=== PATIENT | male | born 1980 | race African-American/Black ===

== ENCOUNTER 2018-09-28 11:52 | Emergency (ER) | payer SELFPAY ==
[~2018-09-28] VITALS: Ht 172.7 cm; Wt 77.7 kg
[2018-09-28] MEDS ORDERED: IV NORMAL SALINE 1,000ML 1,000 ML IV ONE (12:15)
[2018-09-28 12:25] LABS: BASO % 0 % (0-3); EOS % 0 % (0-3); HEMATOCRIT 50.1 % (39.0-53.0); HEMOGLOBIN 16.5 g/dL (13.0-17.5); LYMPH # 0.3 x10^3/uL (1.0-4.8); LYMPH % 4 % (24-48); MEAN CORPUSCULAR HEMOGLOBIN 28 pg (25-35); MEAN CORPUSCULAR HGB CONC 33 g/dL (31-37); MEAN CORPUSCULAR VOLUME 86 fL (79-100); MONO # 0.3 x10^3/uL (0.0-1.1); MONO % 3 % (0-9); NEUT # 7.4 x10^3uL (1.8-7.7); NEUT % 93 % (31-73); PLATELET COUNT 261 x10^3/uL (140-400); RED BLOOD COUNT 5.81 x10^6/uL (4.30-5.70); RED CELL DISTRIBUTION WIDTH 14.3 % (11.5-14.5)
[2018-09-28] MEDS ORDERED: ONDANSETRON PF 4 MG/2 ML VIAL. IV ONE (12:30)
[2018-09-28] MEDS ORDERED: IOHEXOL 300 MG/ML 75 ML VIAL. IV ONE (12:30)
--- NOTE | 2018-09-28 12:36 | PHYS DOC ---
Past History Past Medical History: No Pertinent History Past Surgical History: No Surgical History Alcohol Use: Occasionally Drug Use: None Adult General Chief Complaint Chief Complaint: ABDOMINAL PAIN HPI HPI 38-year-old male presents with lower abdominal pain, vomiting, and diarrhea. The patient woke up at 5 AM with some cramping in the stomach. She'll continue to the restroom. While he was on the toilet she began to vomit. He has had several episodes of vomiting and diarrhea. He has never had this frequent of vomiting in the past. He denies fever or chills at home. He has not been around anyone that has been ill that he knows of. He had a little bit of blood on the toilet paper after his last round of diarrhea. He was feeling normal yesterday. Review of Systems Review of Systems Constitutional: Denies fever or chills [] Eyes: Denies change in visual acuity, redness, or eye pain [] HENT: Denies nasal congestion or sore throat [] Respiratory: Denies cough or shortness of breath [] Cardiovascular: No additional information not addressed in HPI [] GI: Abdominal pain, nausea, vomiting, diarrhea [] : Denies dysuria or hematuria [] Musculoskeletal: Denies back pain or joint pain [] Integument: Denies rash or skin lesions [] Neurologic: Denies headache, focal weakness or sensory changes [] Endocrine: Denies polyuria or polydipsia [] All other systems were reviewed and found to be within normal limits, except as documented in this note. Current Medications Current Medications Current Medications Medications (Trade) Dose Ordered Sig/[facility] Start Time Stop Time Status Last Admin Dose Admin Iohexol (Omnipaque 300 Mg/ml) 75 ml 1X ONCE 09/28/18 12:30 09/28/18 12:32 DC 09/28/18 12:27 75 ML Ondansetron HCl (Zofran) 4 mg 1X ONCE 09/28/18 12:30 09/28/18 12:32 DC 09/28/18 12:16 4 MG Sodium Chloride 1,000 ml @ 1,000 mls/hr 1X ONCE 09/28/18 12:15 09/28/18 13:14 09/28/18 12:15 1,000 MLS/HR Allergies Allergies Allergies Coded Allergies Type Severity Reaction Last Updated Verified No Known Drug Allergies 09/28/18 No Physical Exam Physical Exam Constitutional: Well developed, well nourished, no acute distress, non-toxic appearance. [] HENT: Normocephalic, atraumatic, bilateral external ears normal, oropharynx moist, no oral exudates, nose normal. [] Eyes: PERRLA, EOMI, conjunctiva normal, no discharge. [] Neck: Normal range of motion, no tenderness, supple, no stridor. [] Cardiovascular:Heart rate regular rhythm, no murmur [] Lungs & Thorax: Bilateral breath sounds clear to auscultation [] Abdomen: Bowel sounds normal, soft, no tenderness, no masses, no pulsatile masses. [] Skin: Warm, dry, no erythema, no rash. [] Back: No tenderness, no CVA tenderness. [] Extremities: No tenderness, no cyanosis, no clubbing, ROM intact, no edema. [] Neurologic: Alert and oriented X 3, normal motor function, normal sensory function, no focal deficits noted. [] Psychologic: Affect normal, judgement normal, mood normal. [] Current Patient Data Vital Signs Vital Signs Date Time Temp Pulse Resp B/P (MAP) Pulse Ox O2 Delivery O2 Flow Rate FiO2 09/28/18 12:04 97.8 56 16 100 Room Air EKG EKG [] Radiology/Procedures Radiology/Procedures [] Impressions: EXAM: CT Abdomen and Pelvis with IV contrast CLINICAL HISTORY: Abdominal pain today for 7 hrs COMPARISON: none TECHNIQUE: Helical CT of the abdomen and pelvis was performed following the administration of intravenous contrast. Axial, coronal and sagittal reformatted images were generated. PQRS compliance statement - One or more of the following individualized dose reduction techniques were utilized for this study: 1. Automated exposure control 2. Adjustment of the mA and/or kV according to patient size 3. Use of iterative reconstruction technique FINDINGS: Lower chest: Linear opacities in the middle lobe likely scarring/atelectasis. Abdomen and Pelvis: No focal liver lesion. Gallbladder is normal. No biliary ductal dilatation. Spleen is unremarkable. Adrenal glands are normal. Pancreas is unremarkable. Symmetric nephrograms. No focal renal lesion. No hydronephrosis. No hydroureter. Bladder is unremarkable. Moderate colonic stool content is seen. No evidence for bowel obstruction. The appendix is grossly unremarkable. A small bowel intussusception is seen measuring up to 5.4 cm in length. No abdominal or pelvic ascites. No abdominal or pelvic lymphadenopathy. Bones: Sclerotic focus is seen within the right initial tuberosity likely bone island. No definite aggressive osseous lesion is seen. Of note, the left ischiofemoral space measures about 1.5 cm, which can be associated with ischiofemoral impingement. IMPRESSION: 1. A small bowel intussusception is seen in the pelvis measuring up to 5 cm in length. Small bowel intussusception may be incidental. No evidence of associated bowel obstruction. 2. Of note, the left ischiofemoral interval measures 1.5 cm which may be seen with left ischiofemoral impingement. Electronically signed by: Prasanth Vela MD (09/28/2018 12:49 PM) [facility] DICTATED AND SIGNED BY: PRASANTH VELA MD DATE: 09/28/18 1232 CC: LORENA WHITTEN DO; PCP,NO Course & Med Decision Making Course & Med Decision Making Pertinent Labs and Imaging studies reviewed. (See chart for details) The patient's labs are unremarkable. The patient's CT scan shows a small bowel intussusception, but no obstruction. There was another incidental finding. See official report for more details. The patient was given Zofran and 1 L saline in the ED. This has controlled his vomiting. Patient has not had diarrhea in the ED. I believe the patient can be discharged at this time. I will give him a prescription for Zofran at home. His abdominal pain returns and worsens, the patient will return to the emergency room. [] Dragon Disclaimer Dragon Disclaimer This electronic medical record was generated, in whole or in part, using a voice recognition dictation system. Departure Departure: Impression: Primary Impression: Vomiting and diarrhea Additional Impression: Intussusception of small bowel Disposition: HOME, SELF-CARE Condition: STABLE Referrals: PCP,NO (PCP) Scripts Ondansetron (ONDANSETRON ODT) 4 Mg Tab.rapdis 1 TAB PO PRN Q6-8HRS PRN for VOMITING, #16 TAB Prov: LORENA WHITTEN DO 09/28/18 Problem Qualifiers LORENA WHITTEN DO Sep 28, 2018 12:36
[2018-09-28 12:38] LABS: ALBUMIN 3.6 g/dL (3.4-5.0); ALBUMIN/GLOBULIN RATIO 0.9 (1.0-1.7); CALCIUM 8.6 mg/dL (8.5-10.1); CREATININE 1.2 mg/dL (0.7-1.3); GFR 67.8; POTASSIUM 3.6 mmol/L (3.5-5.1); TOTAL BILIRUBIN 0.6 mg/dL (0.2-1.0); TOTAL PROTEIN 7.5 g/dL (6.4-8.2)
--- NOTE | 2018-09-28 12:53 | RAD ---
EXAM: CT Abdomen and Pelvis with IV contrast CLINICAL HISTORY: Abdominal pain today for 7 hrs COMPARISON: none TECHNIQUE: Helical CT of the abdomen and pelvis was performed following the administration of intravenous contrast. Axial, coronal and sagittal reformatted images were generated. PQRS compliance statement - One or more of the following individualized dose reduction techniques were utilized for this study: 1. Automated exposure control 2. Adjustment of the mA and/or kV according to patient size 3. Use of iterative reconstruction technique FINDINGS: Lower chest: Linear opacities in the middle lobe likely scarring/atelectasis. Abdomen and Pelvis: No focal liver lesion. Gallbladder is normal. No biliary ductal dilatation. Spleen is unremarkable. Adrenal glands are normal. Pancreas is unremarkable. Symmetric nephrograms. No focal renal lesion. No hydronephrosis. No hydroureter. Bladder is unremarkable. Moderate colonic stool content is seen. No evidence for bowel obstruction. The appendix is grossly unremarkable. A small bowel intussusception is seen measuring up to 5.4 cm in length. No abdominal or pelvic ascites. No abdominal or pelvic lymphadenopathy. Bones: Sclerotic focus is seen within the right initial tuberosity likely bone island. No definite aggressive osseous lesion is seen. Of note, the left ischiofemoral space measures about 1.5 cm, which can be associated with ischiofemoral impingement. IMPRESSION: 1. A small bowel intussusception is seen in the pelvis measuring up to 5 cm in length. Small bowel intussusception may be incidental. No evidence of associated bowel obstruction. 2. Of note, the left ischiofemoral interval measures 1.5 cm which may be seen with left ischiofemoral impingement. Electronically signed by: Prasanth Vela MD (09/28/2018 12:49 PM) [facility]
[2018-09-28] MEDS ORDERED: ONDA4TAB12 PO (13:08)
[2018-09-28 13:13] VITALS: BP 121/74
== END 2018-09-28 13:25 | disposition home or self-care (01) ==
LOC: ER 11:52
DX: K56.1 Intussusception (principal); R11.2 Nausea with vomiting, unspecified; R19.7 Diarrhea, unspecified
CPT/HCPCS: 36415; 74177; 80053; 83690; 85025; 96361; 96374; 99284; J2405; Q9967; J7030